=== PATIENT | female | born 1955 | race Hispanic/Latino ===

== ENCOUNTER → 2024-01-14 | Outpatient (CLI) | payer OTHER, MEDICARE | END | disposition home or self-care (01) | LOC: RAH 11:41 | PROVIDERS: ATTEND Physician Assistant Medical | DX: J98.4 Other disorders of lung (principal); R07.82 Intercostal pain; R07.9 Chest pain, unspecified; I51.7 Cardiomegaly; M47.815 Spondylosis without myelopathy or radiculopathy, thoracolumbar region | CPT/HCPCS: 71046; 71100 ==

== ENCOUNTER → 2024-02-11 | Outpatient (CLI) | payer OTHER | END | disposition home or self-care (01) | LOC: OIH 11:56 | PROVIDERS: ATTEND Internal Medicine Cardiovascular Disease | DX: Z13.6 Encounter for screening for cardiovascular disorders (principal) | CPT/HCPCS: 75571 ==